=== PATIENT | female | born 1965 | race African-American/Black ===

== ENCOUNTER 2019-09-25 22:32 | Emergency (ER) | payer MEDICAID ==
[~2019-09-25] VITALS: Ht 165.1 cm; Wt 66.0 kg
[~2019-09-25 22:32] MED LIST: ACYC200C MT; AMIT25TA9 PO; ATEN-176 PO; ATOR40TA70 MT; CLOT15CR2 TP; ELVI1TAB3 PO; FERR325T6 PO; GABA-290 PO; HYDR50TA54 GT; IBUP-2028 PO; OMEP20TA2 PO; OXYB5TAB11 PO; PNV1TABL76 PO; POLY250017 MC; PRAV20TA57 PO; SELE120S4 TP; TOPUD PO
[2019-09-25] MEDS ORDERED: HYDROCODONE/ACETAMINOPHEN 10/325MG TABLET PO ONE (23:15)
[2019-09-26 00:19] LABS: HEMATOCRIT 47.4 % (36.0-48.0); HEMOGLOBIN 15.6 g/dL (12.0-16.0); MEAN CORPUSCULAR HEMOGLOBIN 31.7 pg (28.0-32.0); MEAN CORPUSCULAR VOLUME 96.3 fL (81.0-99.0); PLATELET 160 x1000/uL (130-400); RED BLOOD CELL COUNT 4.92 mill/uL (4.2-5.4); RED CELL DISTRIBUTION WIDTH 14.4 % (11.6-14.6)
[2019-09-26 00:25] LABS: CHLORIDE 108 mEq/L (98-107)
[2019-09-26 00:32] LABS: CREATINE KINASE 129 IU/L (26-192)
[2019-09-26 07:43] VITALS: BP 115/72
== END 2019-09-26 09:21 | disposition home or self-care (01) ==
LOC: ER 22:32
DX: M79.661 Pain in right lower leg (principal); I82.401 Acute embolism and thrombosis of unspecified deep veins of right lower extremity; I10 Essential (primary) hypertension; G82.20 Paraplegia, unspecified; Z85.9 Personal history of malignant neoplasm, unspecified; Z86.73 Personal history of transient ischemic attack (TIA), and cerebral infarction without residual deficits
CPT/HCPCS: 36415; 82550; 85027; 99283

== ENCOUNTER 2020-10-19 20:27 | Inpatient (IN) | payer MEDICAID ==
[~2020-10-19] VITALS: Ht 160 cm; Wt 84.8 kg
[~2020-10-19 20:27] MED LIST changes: -OXYB5TAB11 PO; +OXYB5TAB16 PO
[2020-10-19 21:24] LABS: CHLORIDE 106 mEq/L (98-107)
[2020-10-19 21:29] LABS: PARTIAL THROMBOPLASTIN TIME 29.4 sec (23.4-31.0); PROTHROMBIN TIME 10.9 sec (9.6-11.0)
[2020-10-19 21:32] LABS: HEMATOCRIT. 37.5 % (36.0-48.0); HEMOGLOBIN. 12.3 g/dL (12.0-16.0); MEAN CORPUSCULAR HEMOGLOBIN 30.4 pg (28.0-32.0); MEAN CORPUSCULAR VOLUME 92.1 fL (81.0-99.0); PLATELET 129 x1000/uL (130-400); RED BLOOD CELL COUNT 4.07 mill/uL (4.2-5.4); RED CELL DISTRIBUTION WIDTH 16.1 % (11.6-14.6)
[2020-10-19 22:22] LABS: PLATELET ESTIMATE SLIGHTLY DECREASED
[2020-10-19] MEDS ORDERED: PIPERACILLIN/TAZ 3.375G PREMIX 50 ML IV ONE (23:30)
[2020-10-20 00:19] LABS: CLARITY URINE CLEAR (CLEAR); COLOR URINE YELLOW (YELLOW); KETONES URINE NEGATIVE (NEGATIVE); LEUKOCYTE ESTERASE URINE NEGATIVE (NEGATIVE); NITRITE URINE NEGATIVE (NEGATIVE); OCCULT BLOOD URINE 1+ (NEGATIVE); PH URINE 5.5 (4.5-8.0); PROTEIN URINE 2+ (NEGATIVE); SPECIFIC GRAVITY URINE 1.045 (1.005-1.030); UROBILINOGEN URINE 0.2 E.U./dL (0.2-1.0)
[2020-10-20] MEDS: VANCOMYCIN 1 G PREMIX 200 ML IV SCH ×2 (01:08→01:53)
[2020-10-20] MEDS ORDERED: DEXAMETHASONE 4MG/ML 1ML VIAL IV ONE (02:30)
[2020-10-20] MEDS ORDERED: ACETAMINOPHEN 325MG TABLET PO PRN (12:00)
[2020-10-20] MEDS ORDERED: ONDANSETRON HCL 4MG/2ML INJ IV PRN (12:00)
[2020-10-20] MEDS ORDERED: ENOXAPARIN 30MG/0.3ML SYR SUBCUT SCH (12:00)
[2020-10-20] MEDS ORDERED: TRAZODONE HCL 50MG TABLET PO PRN (12:00)
[2020-10-20] MEDS ORDERED: HYDROCODONE/ACETAMINOPHEN 5/325MG TABLET PO PRN (21:15)
[2020-10-20] MEDS: ATENOLOL 25MG TABLET PO SCH (21:50)
[2020-10-20] MEDS: ENOXAPARIN 30MG/0.3ML SYR SUBCUT SCH (21:51)
[2020-10-21 06:21] LABS: HEMOGLOBIN. 11.9 g/dL (12.0-16.0); MEAN CORPUSCULAR HEMOGLOBIN 30.2 pg (28.0-32.0); MEAN CORPUSCULAR VOLUME 91.6 fL (81.0-99.0); MEAN PLATELET VOLUME 9.8 fl (7.4-10.4); PLATELET 171 x1000/uL (130-400); RED BLOOD CELL COUNT 3.93 mill/uL (4.2-5.4); RED CELL DISTRIBUTION WIDTH 15.6 % (11.6-14.6)
[2020-10-21 06:29] LABS: CHLORIDE 103 mEq/L (98-107)
[2020-10-21 07:12] LABS: PLATELET ESTIMATE NORMAL
[2020-10-21] MEDS: ATENOLOL 25MG TABLET PO SCH ×2 (09:00→23:05)
[2020-10-21] MEDS: ENOXAPARIN 30MG/0.3ML SYR SUBCUT SCH (10:27)
[2020-10-21] MEDS ORDERED: ENOXAPARIN 80MG/0.8ML SYR SUBCUT NR (11:30)
[2020-10-21 20:30] VITALS: BP 127/108
[2020-10-21 22:01] VITALS: BP 127/108
[2020-10-21] MEDS: ENOXAPARIN 100MG/ML SYR SUBCUT SCH (23:05)
[2020-10-22] VITALS: BP 138/60
[2020-10-22 00:30] VITALS: BP 138/60
[2020-10-22 04:00] VITALS: BP 106/54
[2020-10-22 08:00] VITALS: BP_SYST 125; BP_SYST 145; BP_DIAS 81; BP_DIAS 94
[2020-10-22] MEDS ORDERED: APIX5TAB MT (10:17)
[2020-10-22 10:35] LABS: BASOPHILS % 0.2 % (0.0-2.0); EOSINOPHILS % 0.1 % (0.0-5.0); HEMATOCRIT. 39.4 % (36.0-48.0); HEMOGLOBIN. 12.9 g/dL (12.0-16.0); LYMPHOCYTES % 8.9 % (20.0-50.0); MEAN CORPUSCULAR HEMOGLOBIN 30.1 pg (28.0-32.0); MEAN CORPUSCULAR VOLUME 92.4 fL (81.0-99.0); MEAN PLATELET VOLUME 10.2 fl (7.4-10.4); MONOCYTES % 2.5 % (2.0-8.0); NEUTROPHILS % 88.3 % (40.0-76.0); PLATELET 209 x1000/uL (130-400); RED BLOOD CELL COUNT 4.26 mill/uL (4.2-5.4)
[2020-10-22] MEDS: ATENOLOL 25MG TABLET PO SCH (10:40)
[2020-10-22] MEDS: ENOXAPARIN 100MG/ML SYR SUBCUT SCH (10:41)
[2020-10-22 10:45] LABS: CHLORIDE 104 mEq/L (98-107)
[2020-10-22] MEDS ORDERED: HYDR-3281 MT (13:43)
[2020-10-22] MEDS ORDERED: HYDR-4001 PO (14:35)
[2020-10-22 16:44] VITALS: BP 150/75
== END 2020-10-22 18:50 | disposition home or self-care (01) | DRG 890 ==
LOC: ER 20:27 → MICUSO 10-20 01:27 → 8WST 10-21 18:56
PROVIDERS: ADMIT Internal Medicine; ATTEND Internal Medicine
DX: A41.9 Sepsis, unspecified organism (principal); J98.11 Atelectasis; I82.411 Acute embolism and thrombosis of right femoral vein; C50.911 Malignant neoplasm of unspecified site of right female breast; B20 Human immunodeficiency virus [HIV] disease; D69.6 Thrombocytopenia, unspecified; D70.9 Neutropenia, unspecified; R06.89 Other abnormalities of breathing; E78.5 Hyperlipidemia, unspecified; E87.6 Hypokalemia; R74.01 Elevation of levels of liver transaminase levels; R53.2 Functional quadriplegia; E66.01 Morbid (severe) obesity due to excess calories; R09.1 Pleurisy; Z20.828 Contact with and (suspected) exposure to other viral communicable diseases; D68.59 Other primary thrombophilia; Z74.01 Bed confinement status; Z90.11 Acquired absence of right breast and nipple; Z86.718 Personal history of other venous thrombosis and embolism; Z86.73 Personal history of transient ischemic attack (TIA), and cerebral infarction without residual deficits; Z88.5 Allergy status to narcotic agent; Z68.33 Body mass index [BMI] 33.0-33.9, adult; Z79.899 Other long term (current) drug therapy; R94.5 Abnormal results of liver function studies; R65.21 Severe sepsis with septic shock; I11.0 Hypertensive heart disease with heart failure; I50.9 Heart failure, unspecified; J18.9 Pneumonia, unspecified organism
CPT/HCPCS: 36415; 71045; 80053; 81003; 83605; 83735; 83880; 84484; 85025; 85379; 87635; 93005; 93970; 99285; J1100; J1650; J2543; J3370